=== PATIENT | female | born 1995 | race Caucasian/White ===

== ENCOUNTER 2018-12-31 16:04 | Outpatient (CLI) | payer MEDICAID, OTHER ==
[~2018-12-31] VITALS: Ht 152.4 cm; Wt 53.1 kg
--- NOTE | 2018-12-31 15:54 | NUR ---
LEIGHA PAREDES presented to unit via ambulation from home, accompanied by family, with c/o NAUSEA,VOMITING. LEIGHA PAREDES weighed, gowned, voided, and to bed. EFHM and TOCO applied, VS taken. LEIGHA PAREDES oriented to bed controls, call light, TV, heat, and A/C controls.
[~2018-12-31 16:04] MED LIST: ACHYD1T PO; AMOX250S5 PO; AMOX500C2; AMOX500C2 PO; BREA1EAC5 MC; CEPH500C PO; DCS100C PO; FLT05NA16 NSEACH; HYDR-3720 PO; IBP800T PO; NAPR-243 PO
[2018-12-31 16:07] VITALS: BP 102/60
--- NOTE | 2018-12-31 16:15 | NUR ---
FHR 150's per doppler under umbilicus.
--- NOTE | 2018-12-31 16:20 | NUR ---
Dr. Walsh called and notified of pt arrival. familiar with pt and pt c/o n/v. notified of VS, FHR. Orders rec'd.
[2018-12-31] MEDS ORDERED: ONDANSETRON 4 MG/2 ML (SDV) Z0FRAN IVP ONE (16:30)
[2018-12-31] MEDS ORDERED: D5 LR IV SOLUTION 1,000 ML IV SCH (16:30)
[2018-12-31 17:03] LABS: BASOPHILS % (AUTO) 1 % (0-10); EOSINOPHILS # (AUTO) 0.2 10^3/uL (0.0-0.3); EOSINOPHILS % (AUTO) 2 % (0-10); HEMATOCRIT 38 % (35-52); HEMOGLOBIN 12.3 G/DL (11.5-16.0); LYMPHOCYTES # (AUTO) 1.5 X 10^3 (1.0-4.0); LYMPHOCYTES % (AUTO) 19 % (12-44); MEAN CORPUSCULAR HEMOGLOBIN 28 PG (25-34); MEAN CORPUSCULAR HGB CONC 33 G/DL (32-36); MEAN CORPUSCULAR VOLUME 86 FL (80-99); MEAN PLATELET VOLUME 10.4 FL (7.4-10.4); MONOCYTES # (AUTO) 0.7 X 10^3 (0.0-1.0); MONOCYTES % (AUTO) 8 % (0-12); NEUTROPHILS # (AUTO) 5.7 X 10^3 (1.8-7.8); NEUTROPHILS % (AUTO) 71 % (42-75); PLATELET COUNT 304 10^3/uL (130-400)
[2018-12-31 17:24] LABS: ALANINE AMINOTRANSFERASE 96 U/L (0-55); ALBUMIN 3.6 GM/DL (3.2-4.5); ALKALINE PHOSPHATASE 38 U/L (40-136); BILIRUBIN,TOTAL 0.2 MG/DL (0.1-1.0); BUN/CREATININE RATIO 13; CALCIUM 8.7 MG/DL (8.5-10.1); CARBON DIOXIDE 22 MMOL/L (21-32); CHLORIDE 107 MMOL/L (98-107); CREATININE SERUM 0.55 MG/DL (0.60-1.30); GFR ESTIMATED > 60; GLUCOSE 71 MG/DL (70-105); POTASSIUM 3.4 MMOL/L (3.6-5.0); SODIUM 136 MMOL/L (135-145); TOTAL PROTEIN 6.3 GM/DL (6.4-8.2)
--- NOTE | 2018-12-31 17:45 | NUR ---
Dr Walsh here to see pt. Addendum: 12/31/18 at 1816 by LEONEL CAMARA RN Labs reported to at this time.
--- NOTE | 2018-12-31 18:55 | NUR ---
IV fluids done, pt reports feeling much better, desires to go home. IV D/C'd.
--- NOTE | 2018-12-31 19:05 | NUR ---
Discharge instructions explained to pt with copy provided to pt. Pt verbalizes understanding of teaching, denies questions or concerns at this time. Ambulates self off unit accompanied by family to private vehicle with all personal belongings. No s/s of distress noted.
== END 2018-12-31 19:05 | disposition home or self-care (01) ==
LOC: WSo 16:04 → LDRP 16:09 → WS 17:44 → WSo 19:05
PROVIDERS: ATTEND Obstetrics & Gynecology
DX: O21.9 Vomiting of pregnancy, unspecified (principal); Z3A.14 14 weeks gestation of pregnancy
CPT/HCPCS: 36415; 80053; 85025; 96361; 96374; 99213

== ENCOUNTER 2019-01-12 10:03 | Outpatient (CLI) | payer MEDICAID ==
[~2019-01-12] VITALS: Ht 152.4 cm; Wt 52.6 kg
[2019-01-12 09:50] VITALS: BP 97/60
--- NOTE | 2019-01-12 09:50 | NUR ---
LEIGHA PAREDES presented to unit via ambulation from home, accompanied by and daughter , with c/o NAUSEA,PAIN. LEIGHA PAREDES weighed, gowned, and to bed. VS taken. LEIGHA APREDES oriented to bed controls, call light, TV, heat, and A/C controls. Patient reports hx of nausea and vomiting x 2 weeks. States is able to keep down gatorade. Still needs to urinate through out day. Average emesis 4x day, mostly dry heaves. Points to epigastric area and upper sides as to where pain is.
[2019-01-12] MEDS ORDERED: ONDANSETRON 4 MG/2 ML (SDV) Z0FRAN IVP ONE (10:15)
[2019-01-12] MEDS ORDERED: BUTORPHANOL INJ 2 MG/ML (STADOL) VIAL IV PRN (10:15)
--- NOTE | 2019-01-12 10:15 | NUR ---
IV D5LR started in left hand with #22 jelco after 2 attempts. To run 500cc/hr per IV pump. Nausea meds given per order. Patient denies need for pain meds at this time.
[2019-01-12 10:37] LABS: BASOPHILS % (AUTO) 0 % (0-10); EOSINOPHILS # (AUTO) 0.3 10^3/uL (0.0-0.3); EOSINOPHILS % (AUTO) 5 % (0-10); HEMATOCRIT 33 % (35-52); LYMPHOCYTES # (AUTO) 1.7 X 10^3 (1.0-4.0); LYMPHOCYTES % (AUTO) 26 % (12-44); MEAN CORPUSCULAR HEMOGLOBIN 29 PG (25-34); MEAN CORPUSCULAR HGB CONC 33 G/DL (32-36); MEAN CORPUSCULAR VOLUME 87 FL (80-99); MEAN PLATELET VOLUME 9.4 FL (7.4-10.4); MONOCYTES # (AUTO) 0.6 X 10^3 (0.0-1.0); MONOCYTES % (AUTO) 9 % (0-12); NEUTROPHILS # (AUTO) 3.8 X 10^3 (1.8-7.8); NEUTROPHILS % (AUTO) 60 % (42-75); PLATELET COUNT 288 10^3/uL (130-400); RED CELL DISTRIBUTION WIDTH 14.4 % (10.0-14.5); WHITE BLOOD COUNT 6.4 10^3/uL (4.3-11.0)
[2019-01-12] MEDS: D5 LR IV SOLUTION 1,000 ML IV SCH ×2 (10:52→12:53)
[2019-01-12 10:59] LABS: ALANINE AMINOTRANSFERASE 76 U/L (0-55); ALBUMIN 3.4 GM/DL (3.2-4.5); ALKALINE PHOSPHATASE 38 U/L (40-136); BILIRUBIN,TOTAL 0.4 MG/DL (0.1-1.0); BUN/CREATININE RATIO 13; CALCIUM 8.7 MG/DL (8.5-10.1); CARBON DIOXIDE 22 MMOL/L (21-32); CHLORIDE 108 MMOL/L (98-107); CREATININE SERUM 0.56 MG/DL (0.60-1.30); GFR ESTIMATED > 60; GLUCOSE 76 MG/DL (70-105); POTASSIUM 3.5 MMOL/L (3.6-5.0); SODIUM 136 MMOL/L (135-145); TOTAL PROTEIN 5.8 GM/DL (6.4-8.2)
--- NOTE | 2019-01-12 11:00 | NUR ---
Ultrasound here. Exams done in room.
[2019-01-12 11:09] LABS: BILIRUBIN,URINE NEGATIVE (NEGATIVE); CLARITY,URINE CLEAR; COLOR,URINE YELLOW; GLUCOSE, URINE (UA) NEGATIVE (NEGATIVE); KETONES,URINE NEGATIVE (NEGATIVE); LEUKOCYTE ESTERASE ,URINE NEGATIVE (NEGATIVE); NITRITE,URINE NEGATIVE (NEGATIVE); PH,URINE 7 (5-9); PROTEIN,URINE NEGATIVE (NEGATIVE); UROBILINOGEN,URINE NORMAL (NORMAL)
[2019-01-12 11:17] LABS: BACTERIA,URINE TRACE /HPF; RBC,URINE RARE /HPF; WBC,URINE RARE /HPF
--- NOTE | 2019-01-12 12:26 | Diagnostic Imaging Report ---
INDICATION: Abdominal pain during TECHNIQUE: Multiple real time ahuja scale sonographic images were obtained of the right lower quadrant abdomen. CORRELATION STUDY: None FINDINGS: A normal and/or abnormal appendix is not visualized. No definitive encapsulated fluid collection. Large amount of shadowing from the bowel gas. IMPRESSION: 1.Nonvisualization of either a normal and/or abnormal appendix. Dictated by: Dictated on workstation # [id number]
--- NOTE | 2019-01-12 12:28 | Diagnostic Imaging Report ---
Indication: Abdominal pain. Technique: Multiple real-time grayscale images were obtained of the gravid uterus and in various projections. Findings: There is a single living intrauterine in breech presentation. Placenta is anterior. No previa. The biometry correlates with gestational age of 15 weeks 6 days. Heart rate is 133 beats per minute and regular. Cervical length 3.9 cm. Neither ovary was visualized. There are no adnexal masses. Impression: Single living interuterine in breech presentation with sonographically estimated gestational age of 15 weeks 6 days estimated date of confinement June 30, 2019. Dictated by: Dictated on workstation # [id number]
--- NOTE | 2019-01-12 12:29 | Diagnostic Imaging Report ---
PROCEDURE: US abdomen complete. TECHNIQUE: Multiple real-time grayscale images were obtained over the abdomen in various projections. INDICATION: Pain. FINDINGS: Liver is normal in size without focal lesions. No biliary ductal dilatation. Common bile duct measures less than 5 mm. There appears to be a small gallbladder polyp. There is no cholelithiasis, gallbladder wall thickening or pericholecystic fluid. Pancreas not well-seen due to bowel gas. Spleen is normal in size. Aorta is obscured by bowel gas. IVC is patent. Both kidneys are normal in appearance. There is no ascites. IMPRESSION: Unremarkable abdominal ultrasound. Dictated by: Dictated on workstation # [id number]
[2019-01-12 12:45] VITALS: BP 83/44
--- NOTE | 2019-01-12 12:45 | NUR ---
Resting in bed. No concerns voiced by patient. VS checked. Patient states she just got up to bathroom and voided large amount.
--- NOTE | 2019-01-12 13:20 | NUR ---
Dr. Walsh called unit to ask about patient. Reports given. No new orders.
--- NOTE | 2019-01-12 15:00 | NUR ---
IV fluids infused. Patient voiced desire for discharge when options reviewed.
--- NOTE | 2019-01-12 15:10 | NUR ---
IV dc'd. Site without signs of redness or swelling. Discharge instructions reviewed with patient. States understanding.
--- NOTE | 2019-01-12 15:20 | NUR ---
Dismissed ambulatory with family off WS unit to home. Will get in touch with physician on own if needed.
--- NOTE | 2019-01-13 20:04 | Physician Query-Final Dx ---
LYNETTE GOULD 01/13/19 2004: Clinic Account Progress/Dx Physician Query: Please give diagnosis Date of Service Jan 12, 2019 at 10:03 SHELLEY GAONA MD 01/14/19 0809: Clinic Account Progress/Dx DIAGNOSIS: Diagnosis hyperemesis gravidarum at 16 weeks gestation LYNETTE GOULD Jan 13, 2019 20:04 SHELLEY GAONA MD Jan 14, 2019 08:09
== END 2019-01-12 15:20 | disposition home or self-care (01) ==
LOC: LDRP 10:03 → WSo 10:03
PROVIDERS: ATTEND Obstetrics & Gynecology
DX: O21.0 Mild hyperemesis gravidarum (principal); Z3A.16 16 weeks gestation of pregnancy
CPT/HCPCS: 36415; 76700; 76705; 76815; 80053; 81000; 85025; 96361; 96374; 99213

== ENCOUNTER 2019-01-26 00:26 | Outpatient (CLI) | payer MEDICAID ==
[~2019-01-26] VITALS: Ht 152.4 cm; Wt 54.0 kg
--- NOTE | 2019-01-26 00:30 | NUR ---
LEIGHA PAREDES presented to unit via wheelchair from ED, accompanied by s.o., with c/o ABD/BACK PAIN 18 1/2 WKS PREG. LEIGHA PAREDES weighed, gowned, voided, and to bed. EFHM and TOCO applied, VS taken. LEIGHA PAREDES oriented to bed controls, call light, TV, heat, and A/C controls.
[2019-01-26] MEDS ORDERED: D5 LR IV SOLUTION 1,000 ML IV ONE (00:52)
[2019-01-26] MEDS ORDERED: ACETAMINOPHEN 500 MG TAB (TYLENOL) PO ONE (01:00)
[2019-01-26] MEDS ORDERED: D5 LR IV SOLUTION 1,000 ML IV SCH (01:00)
[2019-01-26 01:22] LABS: BASOPHILS % (AUTO) 1 % (0-10); EOSINOPHILS % (AUTO) 1 % (0-10); HEMATOCRIT 36 % (35-52); LYMPHOCYTES # (AUTO) 0.8 X 10^3 (1.0-4.0); LYMPHOCYTES % (AUTO) 12 % (12-44); MEAN CORPUSCULAR HEMOGLOBIN 29 PG (25-34); MEAN CORPUSCULAR HGB CONC 33 G/DL (32-36); MEAN CORPUSCULAR VOLUME 87 FL (80-99); MEAN PLATELET VOLUME 10.3 FL (7.4-10.4); MONOCYTES # (AUTO) 0.8 X 10^3 (0.0-1.0); MONOCYTES % (AUTO) 12 % (0-12); NEUTROPHILS # (AUTO) 4.9 X 10^3 (1.8-7.8); NEUTROPHILS % (AUTO) 75 % (42-75); PLATELET COUNT 273 10^3/uL (130-400); RED CELL DISTRIBUTION WIDTH 14.5 % (10.0-14.5); WHITE BLOOD COUNT 6.6 10^3/uL (4.3-11.0)
[2019-01-26 01:30] VITALS: BP 98/58
[2019-01-26 01:31] LABS: BILIRUBIN,URINE NEGATIVE (NEGATIVE); CLARITY,URINE CLEAR; COLOR,URINE YELLOW; GLUCOSE, URINE (UA) 2+ (NEGATIVE); KETONES,URINE 3+ (NEGATIVE); LEUKOCYTE ESTERASE ,URINE NEGATIVE (NEGATIVE); NITRITE,URINE NEGATIVE (NEGATIVE); PH,URINE 8 (5-9); PROTEIN,URINE 2+ (NEGATIVE); UROBILINOGEN,URINE 1 MG/DL (NORMAL)
[2019-01-26 01:40] LABS: BACTERIA,URINE NEGATIVE /HPF; RBC,URINE 0-2 /HPF
[2019-01-26 01:46] LABS: BAND NEUTROPHILS 6 %; LYMPHOCYTES % (MANUAL) 8 %; MONOCYTES % (MANUAL) 8 %; NEUTROPHILS % (MANUAL) 78 %; RBC MORPH NORMAL
[2019-01-26] MEDS ORDERED: AZIT250T12 PO (01:54)
[2019-01-26 02:01] VITALS: BP 98/58
[2019-01-26 02:08] VITALS: BP 102/59
--- NOTE | 2019-01-26 02:10 | NUR ---
Discharge packet given and explained, understanding voiced.
--- NOTE | 2019-01-26 02:12 | NUR ---
Pt ambulatory off unit at this time accompanied by s/o
== END 2019-01-26 02:12 | disposition home or self-care (01) ==
LOC: WSo 00:26 → LDRP 00:26 → WSo 02:12
PROVIDERS: ATTEND Obstetrics & Gynecology
DX: O62.9 Abnormality of forces of labor, unspecified (principal); Z3A.17 17 weeks gestation of pregnancy
CPT/HCPCS: 36415; 81000; 85007; 85027; 96360; 99213

== ENCOUNTER 2019-03-23 18:40 | Outpatient (CLI) | payer MEDICAID ==
[~2019-03-23] VITALS: Ht 152.4 cm; Wt 55.8 kg
[~2019-03-23 18:40] MED LIST changes: +AZIT250T12 PO
--- NOTE | 2019-03-23 18:40 | NUR ---
LEIGHA PAREDES presented to unit via w/c from home, accompanied by family, with c/o ITCHING,CRAMPING,SOB,STOMACH PAIN. LEIGHA PAREDES weighed, gowned, voided, and to bed. EFHM and TOCO applied, VS taken. LEIGHA PAREDES oriented to bed controls, call light, TV, heat, and A/C controls.
[2019-03-23 18:51] VITALS: BP 106/63
--- NOTE | 2019-03-23 19:02 | NUR ---
DR. GAONA NOTIFIED OF PT'S ARRIVAL, GESTATION, C/O, SVE. NEW ORDERS RECEIVED.
[2019-03-23 19:17] LABS: BASOPHILS % (AUTO) 0 % (0-10); EOSINOPHILS # (AUTO) 0.5 10^3/uL (0.0-0.3); EOSINOPHILS % (AUTO) 6 % (0-10); HEMATOCRIT 32 % (35-52); HEMOGLOBIN 10.5 G/DL (11.5-16.0); LYMPHOCYTES # (AUTO) 1.5 X 10^3 (1.0-4.0); LYMPHOCYTES % (AUTO) 20 % (12-44); MEAN CORPUSCULAR HEMOGLOBIN 29 PG (25-34); MEAN CORPUSCULAR HGB CONC 32 G/DL (32-36); MEAN CORPUSCULAR VOLUME 89 FL (80-99); MEAN PLATELET VOLUME 10.1 FL (7.4-10.4); MONOCYTES # (AUTO) 0.6 X 10^3 (0.0-1.0); MONOCYTES % (AUTO) 8 % (0-12); NEUTROPHILS % (AUTO) 66 % (42-75); PLATELET COUNT 304 10^3/uL (130-400); WHITE BLOOD COUNT 7.5 10^3/uL (4.3-11.0)
[2019-03-23] MEDS ORDERED: PREN-142 PO (20:05)
[2019-03-23] MEDS ORDERED: OXYC-471 PO (20:05)
--- NOTE | 2019-03-23 20:15 | NUR ---
D/C instructions given & explained, pt. verbalized understanding & signed, copy of D/C instructions to pt. Pt. taken off monitor, left WS ambulatory to home via private vehicle escorted by SO & children.
--- NOTE | 2019-03-25 17:12 | Physician Query-Final Dx ---
LYNETTE GOULD 03/25/19 1712: Final Diagnosis Give Final Diagnosis Please give Final Diagnosis SHELLEY GAONA MD 03/26/19 0725: Final Diagnosis Give Final Diagnosis FAlse labor LYNETTE GOULD March 25, 2019 17:12 SHELLEY GAONA MD March 26, 2019 07:25
== END 2019-03-23 20:15 | disposition home or self-care (01) ==
LOC: LDRP 18:40 → WSo 18:40
PROVIDERS: ATTEND Obstetrics & Gynecology
DX: O47.9 False labor, unspecified (principal)
CPT/HCPCS: 36415; 85025; 99213

== ENCOUNTER 2019-05-05 16:20 | Outpatient (CLI) | payer MEDICAID, OTHER ==
[~2019-05-05] VITALS: Ht 152.4 cm; Wt 60.3 kg
[~2019-05-05 16:20] MED LIST changes: +OXYC-471 PO; +PREN-142 PO
--- NOTE | 2019-05-05 16:30 | NUR ---
LEIGHA PAREDES presented to unit via ambulation, accompanied by fmaily members, with c/o abd cramping since yesterday. Pt. weighed, gowned, voided, and to bed. EFHM and TOCO applied, VS taken. Pt. oriented to bed controls, call light, TV, heat, and A/C controls.
[2019-05-05 16:34] VITALS: BP 100/67
[2019-05-05 16:59] LABS: BILIRUBIN,URINE NEGATIVE (NEGATIVE); CLARITY,URINE CLEAR; COLOR,URINE YELLOW; GLUCOSE, URINE (UA) NEGATIVE (NEGATIVE); KETONES,URINE NEGATIVE (NEGATIVE); LEUKOCYTE ESTERASE ,URINE NEGATIVE (NEGATIVE); NITRITE,URINE NEGATIVE (NEGATIVE); PH,URINE 7 (5-9); PROTEIN,URINE NEGATIVE (NEGATIVE); UROBILINOGEN,URINE NORMAL (NORMAL)
--- NOTE | 2019-05-05 17:02 | NUR ---
SVe closed, thick, posterior. reports c/o constant lower abd cramping since yesterday. took warm bath with no relief. report frequency with urination. denies vaginal bleeding or leaking fluid. +FM.
--- NOTE | 2019-05-05 17:07 | NUR ---
was called. no answer on cell phone.
[2019-05-05 17:12] LABS: BACTERIA,URINE MODERATE /HPF
--- NOTE | 2019-05-05 17:23 | NUR ---
returned phone call. status update given on pt's admit c/o's. Macrobid Rx order given.
[2019-05-05] MEDS ORDERED: NITR-65 PO (17:26)
--- NOTE | 2019-05-05 17:27 | NUR ---
monitors dc'd. POC reviewed, states understanding. monitor tracing reviewed. no ctx's noted. FHR 135. moderate variability present. accels noted.
--- NOTE | 2019-05-05 17:30 | NUR ---
Macrobid 100mg p.o. BID x7 days-- called into [facility] per pt's request.
--- NOTE | 2019-05-05 17:36 | NUR ---
dismissal instructions given. verbalizes understanding. reviewed Macrobid administration schedule. instructed pt to increase daily water intake and finish Rx. signature page signed, placed on chart. pt ambulated to private vehicle with family members @ side.
--- NOTE | 2019-05-09 17:06 | Physician Query-Final Dx ---
Final Diagnosis Give Final Diagnosis Please give Final Diagnosis Dr Walsh, Please give a final diagnosis and please include the weeks of gestation thank you SAVI ELIZABETH May 09, 2019 17:06
== END 2019-05-05 17:36 | disposition home or self-care (01) ==
LOC: WSo 16:20 → LDRP 16:20 → WSo 17:36
PROVIDERS: ATTEND Obstetrics & Gynecology
DX: O47.03 False labor before 37 completed weeks of gestation, third trimester (principal); Z3A.32 32 weeks gestation of pregnancy
CPT/HCPCS: 81000; 87088; 99213

== ENCOUNTER 2019-05-24 12:36 | Outpatient (CLI) | payer MEDICAID ==
[~2019-05-24] VITALS: Ht 152.4 cm; Wt 60.3 kg
[~2019-05-24 12:36] MED LIST changes: +NITR-65 PO
--- NOTE | 2019-05-24 12:36 | NUR ---
LEIGHA PAREDES presented to unit via ambulatory from home, accompanied by spouse , with c/o CRAMPING. LEIGHA PAREDES weighed, gowned, voided, and to bed. EFHM and TOCO applied, VS taken. LEIGHA PAREDES oriented to bed controls, call light, TV, heat, and A/C controls.
[2019-05-24 12:39] VITALS: BP 96/68
--- NOTE | 2019-05-24 13:05 | NUR ---
Dr Walsh notifed per text of pt admission and complaints of cramping and brown colored discharge x 1. 1324 Physician returned call with orders. 1335 Wet prep done and sent to lab. Pt denies contractions.
--- NOTE | 2019-05-24 13:40 | NUR ---
FHT 130's with accelerations. Occasional contraction. 1500 FHT 130's with accelerations. Occasional contraction. 1550 Discharge to home. Verbalizes understanding of instructions and to obtain Flagyl from pharmacy.
[2019-05-24] MEDS ORDERED: DICY10CA12 PO (14:00)
--- NOTE | 2019-05-24 14:36 | NUR ---
Dr Walsh notified per text of wet prep results.
[2019-05-24] MEDS ORDERED: METR500T PO (15:28)
--- NOTE | 2019-06-04 15:19 | Physician Query-Final Dx ---
LYNETTE GOULD 06/04/19 1519: Clinic Account Progress/Dx Physician Query: Please give diagnosis Need dx and weeks of gestation Date of Service May 24, 2019 at 12:36 SHELLEY GAONA MD 06/05/19 0918: Clinic Account Progress/Dx DIAGNOSIS: Diagnosis False labor at 34 weeks and 5 days and about 17 hours LYNETTE GOULD Jun 04, 2019 15:19 SHELLEY GAONA MD Jun 05, 2019 09:18
== END 2019-05-24 15:50 | disposition home or self-care (01) ==
LOC: LDRP 12:36 → WSo 12:36
PROVIDERS: ATTEND Obstetrics & Gynecology
DX: O47.03 False labor before 37 completed weeks of gestation, third trimester (principal); Z3A.34 34 weeks gestation of pregnancy
CPT/HCPCS: 87210; 99214

== ENCOUNTER 2019-06-05 20:45 | Outpatient (CLI) | payer MEDICAID ==
[~2019-06-05] VITALS: Ht 152.4 cm; Wt 61.2 kg
[~2019-06-05 20:45] MED LIST changes: +DICY10CA12 PO; +METR500T PO
[2019-06-05 21:00] VITALS: BP 110/76
--- NOTE | 2019-06-05 21:00 | NUR ---
LEIGHA PAREDES presented to unit via AMBULATORY from ED, accompanied by S/O, with c/o CONTRACTIONS; LEAKING FLUID. LEIGHA PAREDES weighed, gowned, voided, and to bed. EFHM and TOCO applied, VS taken. LEIGHA PAREDES oriented to bed controls, call light, TV, heat, and A/C controls.
--- NOTE | 2019-06-05 21:13 | NUR ---
called with pt's arrival and exam. new orders received.
--- NOTE | 2019-06-05 21:40 | NUR ---
Reactive nst, no contractions noted. pt denies any pain. discharge instructions given with labor precautions. pt dc'd home with s/o at side.
--- NOTE | 2019-06-10 18:31 | Physician Query-Final Dx ---
LYNETTE GOULD 06/10/19 1831: Clinic Account Progress/Dx Physician Query: Please give diagnosis Need dx and weeks of gestation Date of Service Jun 05, 2019 at 20:45 SHELLEY GAONA MD 06/10/19 1901: Clinic Account Progress/Dx DIAGNOSIS: Diagnosis False labor at 36 weeks gestation LYNETTE GOULD Jun 10, 2019 18:31 SHELLEY GAONA MD Jun 10, 2019 19:01
== END 2019-06-05 21:40 | disposition home or self-care (01) ==
LOC: WSo 20:45 → LDRP 20:47 → WSo 21:40
PROVIDERS: ATTEND Obstetrics & Gynecology
DX: O47.03 False labor before 37 completed weeks of gestation, third trimester (principal); Z3A.36 36 weeks gestation of pregnancy
CPT/HCPCS: 99213

== ENCOUNTER 2019-06-16 10:52 | Inpatient (IN) | payer MEDICAID ==
[2019-06-16] VITALS (55 sets, daily range): BP systolic 85–122; BP diastolic 51–79
[~2019-06-16] VITALS: Ht 152.4 cm; Wt 63.2 kg
--- NOTE | 2019-06-16 10:56 | NUR ---
LEIGHA PAREDES presented to unit via ambulation from 's office, accompanied by family, for direct admit r/t labor. Pt. weighed, gowned, voided, and to bed. EFHM and TOCO applied, VS taken. Pt. oriented to bed controls, call light, TV, heat, and A/C controls.
--- OUTSIDE RECORDS SUMMARY | 2019-06-16 11:00 | XMS REPORT | Continuity of Care Document ---
Author Organization Unknown Address Unknown Phone Unavailable Allergies Active Description Code Type Severity Reaction Onset Reported/Identified Relationship to Patient Clinical Status Yes NKANo Known Allergies NKA Miscellaneous Allergy Mild N/A 03/17/2009 Medications There is no data. Problems Date Dx Coded Attending Type Code Diagnosis Diagnosed By 07/19/2008 V03.89 MENINGOCOCCAL, OTHER SPECIFIED SINGLE BACTERIAL DISEASE 07/19/2008 V05.3 HEPATITIS VIRAL/ALL 07/19/2008 V05.8 GARDASIL, SHINGLES, OTHER SPECIFIED DISEASE 07/19/2008 V20.2 WELL CHILD, ROUTINE 07/19/2008 NOMAN GUPTA DO V03.89 MENINGOCOCCAL, OTHER SPECIFIED SINGLE BACTERIAL DISEASE 07/19/2008 NOMAN GUPTA DO V05.3 HEPATITIS VIRAL/ALL 07/19/2008 NOMAN GUPTA DO V05.8 GARDASIL, SHINGLES, OTHER SPECIFIED DISEASE 07/19/2008 NOMAN GUPTA DO V20.2 WELL CHILD, ROUTINE 08/08/2010 Ot 620.2 08/08/2010 Ot 625.9 03/27/2011 Ot 041.4 E. COLI INFECT NOS 03/27/2011 Ot 276.51 DEHYDRATION 03/27/2011 Ot 599.0 URIN TRACT INFECTION NOS 11/27/2011 Ot 632 MISSED 11/12/2012 Ot 462 ACUTE PHARYNGITIS 11/12/2012 Ot 465.9 ACUTE URI NOS 01/26/2013 Ot 599.0 URIN TRACT INFECTION NOS 01/26/2013 Ot 780.60 FEVER, UNSPECIFIED 08/16/2013 CURTIS DUGGAN MD Ot 789.00 ABDOMINAL PAIN, UNSPECIFIED SITE 08/20/2013 NOMAN GUPTA DO 626.0 AMENORRHEA 02/28/2014 CURTIS DUGGAN MD Ot 462 ACUTE PHARYNGITIS 02/28/2014 CURTIS DUGGAN MD Ot 648.93 OT CURR COND-ANTEPARTUM 03/10/2014 CANDELARIA GARCIA, SHELLEY Liang Ot 644.21 EARLY ONSET DELIVERY-DEL 03/10/2014 CANDELARIA GARCIA, SHELLEY Liang Ot 663.31 CORD ENTANGLE NEC-DELIV 03/10/2014 CANDELARIA GARCIA, SHELLEY Liang Ot V06.1 [id number], COMBINED [ 03/10/2014 SHELLEY GAONA MD Ot V06.4 [id number] 03/10/2014 SHELLEY GAONA MD Ot V27.0 DELIVER-SINGLE LIVEBORN 03/26/2015 CURTIS DUGGAN MD Ot 346.90 MIGRAINE UNSPECIFIED W/O INTRACT MGRN W/ 03/26/2015 CURTIS DUGGAN MD Ot 784.0 HEADACHE 09/18/2015 Ot 276.8 09/18/2015 Ot 285.9 09/18/2015 Ot 632 09/18/2015 Ot V72.63 09/18/2015 Ot V74.8 09/18/2015 SHELLEY GAONA MD Ot 575.6 09/18/2015 SHELLEY GAONA MD Ot 789.00 10/04/2015 SALINA GARCIA FACC, ALI FACP CCDS Ot R00.2 10/04/2015 SALINA GARCIA FACC, ALI FACP CCDS Ot R06.02 10/16/2015 SALINA GARCIA FACC, ALI FACP CCDS Ot R00.2 10/16/2015 SALINA GARCIA FACC, ALI FACP CCDS Ot R06.02 04/18/2016 Ot 276.8 HYPOPOTASSEMIA 04/18/2016 Ot 285.9 ANEMIA NOS 04/18/2016 Ot 632 MISSED 04/18/2016 Ot V72.63 PRE-PROCEDURAL LABORATORY EXAMINATION 04/18/2016 Ot V74.8 SCREEN-BACTERIAL DIS NEC 12/31/2018 SHELLEY GAONA MD Ot 575.6 GB CHOLESTEROLOSIS 12/31/2018 CANDELARIA GARCIA, SHELLEY Liang Ot 789.00 ABDOMINAL PAIN, UNSPECIFIED SITE 12/31/2018 SALINA GARCIA FACC, ALI FACP CCDS Ot R00.2 PALPITATIONS 12/31/2018 SALINA GARCIA FACC, ALI FACP CCDS Ot R06.02 SHORTNESS OF BREATH 12/31/2018 SHELLEY GAONA MD, Ot O21.9 VOMITING OF , UNSPECIFIED 12/31/2018 SHELLEY GAONA MD, Ot Z3A.14 14 WEEKS GESTATION OF 01/01/2019 SHELLEY GAONA MD, Ot O21.9 VOMITING OF , UNSPECIFIED 01/01/2019 SHELLEY GAONA MD, Ot Z3A.14 14 WEEKS GESTATION OF 01/12/2019 SHELLEY GAONA MD, Ot O21.0 MILD HYPEREMESIS GRAVIDARUM 01/12/2019 SHELLEY GAONA MD, Ot Z3A.16 16 WEEKS GESTATION OF 01/26/2019 SHELLEY GAONA MD, Ot O62.9 ABNORMALITY OF FORCES OF LABOR, UNSPECIF 01/26/2019 SHELLEY GAONA MD, Ot Z3A.17 17 WEEKS GESTATION OF 03/23/2019 SHELLEY GAONA MD, Ot O47.9 FALSE LABOR, UNSPECIFIED 03/26/2019 SHELLEY GAONA MD, Ot O47.9 FALSE LABOR, UNSPECIFIED 05/05/2019 SHELLEY GAONA MD, Ot O47.03 FALSE LABOR BEFORE 37 COMPLETED WEEKS OF 05/05/2019 SHELLEY GAONA MD, Ot Z3A.32 32 WEEKS GESTATION OF 05/18/2019 SHELLEY GAONA MD, Ot O47.03 FALSE LABOR BEFORE 37 COMPLETED WEEKS OF 05/18/2019 SHELLEY GAONA MD, Ot Z3A.32 32 WEEKS GESTATION OF 06/05/2019 SHELLEY GAONA MD, Ot O47.03 FALSE LABOR BEFORE 37 COMPLETED WEEKS OF 06/05/2019 SHELLEY GAONA MD, Ot Z3A.36 36 WEEKS GESTATION OF 06/08/2019 SHELLEY GAONA MD, Ot O47.03 FALSE LABOR BEFORE 37 COMPLETED WEEKS OF 06/08/2019 SHELLEY GAONA MD, Ot Z3A.34 34 WEEKS GESTATION OF 06/11/2019 SHELLEY GAONA MD, Ot O47.03 FALSE LABOR BEFORE 37 COMPLETED WEEKS OF 06/11/2019 SHELLEY GAONA MD G Ot Z3A.36 36 WEEKS GESTATION OF Procedures Code [place] [address] ROUTINE VENIPUNCTURE 08/23/2013 90824 HCG QUANTITATIVE 08/23/2013 73.6 EPISIOTOMY 03/08/2014 Results Test Result Range Complete blood count (CBC) with automated white blood cell (WBC) differential - 12/31/18 16:50 Blood leukocytes automated count (number/volume) 8.0 10*3/uL 4.3-11.0 Blood erythrocytes automated count (number/volume) 4.34 10*6/uL 4.35-5.85 Venous blood hemoglobin measurement (mass/volume) 12.3 g/dL 11.5-16.0 Blood hematocrit (volume fraction) 38 % 35-52 Automated erythrocyte mean corpuscular volume 86 [foz_us] 80-99 Automated erythrocyte mean corpuscular hemoglobin (mass per erythrocyte) 28 pg 25-34 Automated erythrocyte mean corpuscular hemoglobin concentration measurement (mass/volume) 33 g/dL 32-36 Automated erythrocyte distribution width ratio 14.0 % 10.0- 14.5 Automated blood platelet count (count/volume) 304 10*3/uL 130-400 Automated blood platelet mean volume measurement 10.4 [foz_us] 7.4-10.4 Automated blood neutrophils/100 leukocytes 71 % 42-75 Automated blood lymphocytes/100 leukocytes 19 % 12-44 Blood monocytes/100 leukocytes 8 % 0-12 Automated blood eosinophils/100 leukocytes 2 % 0-10 Automated blood basophils/100 leukocytes 1 % 0-10 Blood neutrophils automated count (number/volume) 5.7 10*3 1.8-7.8 Blood lymphocytes automated count (number/volume) 1.5 10*3 1.0-4.0 Blood monocytes automated count (number/volume) 0.7 10*3 0.0- 1.0 Automated eosinophil count 0.2 10*3/uL 0.0-0.3 Automated blood basophil count (count/volume) 0.0 10*3/uL 0.0-0.1 Comprehensive metabolic panel - 12/31/18 16:50 Serum or plasma sodium measurement (moles/volume) 136 mmol/L 135-145 Serum or plasma potassium measurement (moles/volume) 3.4 mmol/L 3.6-5.0 Serum or plasma chloride measurement (moles/volume) 107 mmol/L 98-107 Carbon dioxide 22 mmol/L 21-32 Serum or plasma anion gap determination (moles/volume) 7 mmol/L 5-14 Serum or plasma urea nitrogen measurement (mass/volume) 7 mg/dL 7-18 Serum or plasma creatinine measurement (mass/volume) 0.55 mg/dL 0.60-1.30 Serum or plasma urea nitrogen/creatinine mass ratio 13 NRG Serum or plasma creatinine measurement with calculation of estimated glomerular filtration rate > NRG Serum or plasma glucose measurement (mass/volume) 71 mg/dL 70-105 Serum or plasma calcium measurement (mass/volume) 8.7 mg/dL 8.5-10.1 Serum or plasma total bilirubin measurement (mass/volume) 0.2 mg/dL 0.1-1.0 Serum or plasma alkaline phosphatase measurement (enzymatic activity/volume) 38 U/L 40-136 Serum or plasma aspartate aminotransferase measurement (enzymatic activity/volume) 55 U/L 5-34 Serum or plasma alanine aminotransferase measurement (enzymatic activity/volume) 96 U/L 0-55 Serum or plasma protein measurement (mass/volume) 6.3 g/dL 6.4-8.2 Serum or plasma albumin measurement (mass/volume) 3.6 g/dL 3.2-4.5 CALCIUM CORRECTED 9.0 mg/dL 8.5-10.1 Complete urinalysis with reflex to culture - 01/12/19 10:20 Urine color determination YELLOW NRG Urine clarity determination CLEAR NRG Urine pH measurement by test strip 7 5-9 Specific gravity of urine by test strip 1.010 1.016-1.022 Urine protein assay by test strip, semi-quantitative NEGATIVE NEGATIVE Urine glucose detection by automated test strip NEGATIVE NEGATIVE Erythrocytes detection in urine sediment by light microscopy NEGATIVE NEGATIVE Urine ketones detection by automated test strip NEGATIVE NEGATIVE Urine nitrite detection by test strip NEGATIVE NEGATIVE Urine total bilirubin detection by test strip NEGATIVE NEGATIVE Urine urobilinogen measurement by automated test strip (mass/volume) NORMAL NORMAL Urine leukocyte esterase detection by dipstick NEGATIVE NEGATIVE Automated urine sediment erythrocyte count by microscopy (number/high power field) RARE NRG Automated urine sediment leukocyte count by microscopy (number/high power field) RARE NRG Bacteria detection in urine sediment by light microscopy TRACE NRG Squamous epithelial cells detection in urine sediment by light microscopy 10-25 NRG Crystals detection in urine sediment by light microscopy NONE NRG Casts detection in urine sediment by light microscopy NONE NRG Mucus detection in urine sediment by light microscopy MODERATE NRG Complete urinalysis with reflex to culture NO NRG Complete blood count (CBC) with automated white blood cell (WBC) differential - 01/12/19 10:25 Blood leukocytes automated count (number/volume) 6.4 10*3/uL 4.3-11.0 Blood erythrocytes automated count (number/volume) 3.80 10*6/uL 4.35-5.85 Venous blood hemoglobin measurement (mass/volume) 11.0 g/dL 11.5-16.0 Blood hematocrit (volume fraction) 33 % 35-52 Automated erythrocyte mean corpuscular volume 87 [foz_us] 80-99 Automated erythrocyte mean corpuscular hemoglobin (mass per erythrocyte) 29 pg 25-34 Automated erythrocyte mean corpuscular hemoglobin concentration measurement (mass/volume) 33 g/dL 32-36 Automated erythrocyte distribution width ratio 14.4 % 10.0- 14.5 Automated blood platelet count (count/volume) 288 10*3/uL 130-400 Automated blood platelet mean volume measurement 9.4 [foz_us] 7.4-10.4 Automated blood neutrophils/100 leukocytes 60 % 42-75 Automated blood lymphocytes/100 leukocytes 26 % 12-44 Blood monocytes/100 leukocytes 9 % 0-12 Automated blood eosinophils/100 leukocytes 5 % 0-10 Automated blood basophils/100 leukocytes 0 % 0-10 Blood neutrophils automated count (number/volume) 3.8 10*3 1.8-7.8 Blood lymphocytes automated count (number/volume) 1.7 10*3 1.0-4.0 Blood monocytes automated count (number/volume) 0.6 10*3 0.0- 1.0 Automated eosinophil count 0.3 10*3/uL 0.0-0.3 Automated blood basophil count (count/volume) 0.0 10*3/uL 0.0-0.1 Comprehensive metabolic panel - 01/12/19 10:25 Serum or plasma sodium measurement (moles/volume) 136 mmol/L 135-145 Serum or plasma potassium measurement (moles/volume) 3.5 mmol/L 3.6-5.0 Serum or plasma chloride measurement (moles/volume) 108 mmol/L 98-107 Carbon dioxide 22 mmol/L 21-32 Serum or plasma anion gap determination (moles/volume) 6 mmol/L 5-14 Serum or plasma urea nitrogen measurement (mass/volume) 7 mg/dL 7-18 Serum or plasma creatinine measurement (mass/volume) 0.56 mg/dL 0.60-1.30 Serum or plasma urea nitrogen/creatinine mass ratio 13 NRG Serum or plasma creatinine measurement with calculation of estimated glomerular filtration rate > NRG Serum or plasma glucose measurement (mass/volume) 76 mg/dL 70-105 Serum or plasma calcium measurement (mass/volume) 8.7 mg/dL 8.5-10.1 Serum or plasma total bilirubin measurement (mass/volume) 0.4 mg/dL 0.1-1.0 Serum or plasma alkaline phosphatase measurement (enzymatic activity/volume) 38 U/L 40-136 Serum or plasma aspartate aminotransferase measurement (enzymatic activity/volume) 57 U/L 5-34 Serum or plasma alanine aminotransferase measurement (enzymatic activity/volume) 76 U/L 0-55 Serum or plasma protein measurement (mass/volume) 5.8 g/dL 6.4-8.2 Serum or plasma albumin measurement (mass/volume) 3.4 g/dL 3.2-4.5 CALCIUM CORRECTED 9.2 mg/dL 8.5-10.1 Blood CBC with ordered manual differential panel - 01/26/19 01:05 Blood leukocytes automated count (number/volume) 6.6 10*3/uL 4.3-11.0 Blood erythrocytes automated count (number/volume) 4.16 10*6/uL 4.35-5.85 Venous blood hemoglobin measurement (mass/volume) 12.0 g/dL 11.5-16.0 Blood hematocrit (volume fraction) 36 % 35-52 Automated erythrocyte mean corpuscular volume 87 [foz_us] 80-99 Automated erythrocyte mean corpuscular hemoglobin (mass per erythrocyte) 29 pg 25-34 Automated erythrocyte mean corpuscular hemoglobin concentration measurement (mass/volume) 33 g/dL 32-36 Automated erythrocyte distribution width ratio 14.5 % 10.0- 14.5 Automated blood platelet count (count/volume) 273 10*3/uL 130-400 Automated blood platelet mean volume measurement 10.3 [foz_us] 7.4-10.4 Automated blood neutrophils/100 leukocytes 75 % 42-75 Automated blood lymphocytes/100 leukocytes 12 % 12-44 Blood monocytes/100 leukocytes 8 % NRG Automated blood eosinophils/100 leukocytes 1 % 0-10 Automated blood basophils/100 leukocytes 1 % 0-10 Blood neutrophils automated count (number/volume) 4.9 10*3 1.8-7.8 Blood lymphocytes automated count (number/volume) 0.8 10*3 1.0-4.0 Blood monocytes automated count (number/volume) 0.8 10*3 0.0- 1.0 Automated eosinophil count 0.0 10*3/uL 0.0-0.3 Automated blood basophil count (count/volume) 0.0 10*3/uL 0.0-0.1 Manual blood segmented neutrophils/100 leukocytes 78 % NRG Blood band neutrophils/100 leukocytes 6 % NRG Manual blood lymphocytes/100 leukocytes 8 % NRG Blood erythrocyte morphology finding identification NORMAL NRG Complete urinalysis with reflex to culture - 01/26/19 01:20 Urine color determination YELLOW NRG Urine clarity determination CLEAR NRG Urine pH measurement by test strip 8 5-9 Specific gravity of urine by test strip 1.015 1.016-1.022 Urine protein assay by test strip, semi-quantitative 2+ NEGATIVE Urine glucose detection by automated test strip 2+ NEGATIVE Erythrocytes detection in urine sediment by light microscopy 2+ NEGATIVE Urine ketones detection by automated test strip 3+ NEGATIVE Urine nitrite detection by test strip NEGATIVE NEGATIVE Urine total bilirubin detection by test strip NEGATIVE NEGATIVE Urine urobilinogen measurement by automated test strip (mass/volume) 1 mg/dL NORMAL Urine leukocyte esterase detection by dipstick NEGATIVE NEGATIVE Automated urine sediment erythrocyte count by microscopy (number/high power field) [HPF] NRG Automated urine sediment leukocyte count by microscopy (number/high power field) NONE NRG Bacteria detection in urine sediment by light microscopy NEGATIVE NRG Squamous epithelial cells detection in urine sediment by light microscopy 2-5 NRG Crystals detection in urine sediment by light microscopy NONE NRG Casts detection in urine sediment by light microscopy NONE NRG Mucus detection in urine sediment by light microscopy LARGE NRG Complete urinalysis with reflex to culture NO NRG Complete blood count (CBC) with automated white blood cell (WBC) differential - 03/23/19 19:10 Blood leukocytes automated count (number/volume) 7.5 10*3/uL 4.3-11.0 Blood erythrocytes automated count (number/volume) 3.66 10*6/uL 4.35-5.85 Venous blood hemoglobin measurement (mass/volume) 10.5 g/dL 11.5-16.0 Blood hematocrit (volume fraction) 32 % 35-52 Automated erythrocyte mean corpuscular volume 89 [foz_us] 80-99 Automated erythrocyte mean corpuscular hemoglobin (mass per erythrocyte) 29 pg 25-34 Automated erythrocyte mean corpuscular hemoglobin concentration measurement (mass/volume) 32 g/dL 32-36 Automated erythrocyte distribution width ratio 14.0 % 10.0- 14.5 Automated blood platelet count (count/volume) 304 10*3/uL 130-400 Automated blood platelet mean volume measurement 10.1 [foz_us] 7.4-10.4 Automated blood neutrophils/100 leukocytes 66 % 42-75 Automated blood lymphocytes/100 leukocytes 20 % 12-44 Blood monocytes/100 leukocytes 8 % 0-12 Automated blood eosinophils/100 leukocytes 6 % 0-10 Automated blood basophils/100 leukocytes 0 % 0-10 Blood neutrophils automated count (number/volume) 5.0 10*3 1.8-7.8 Blood lymphocytes automated count (number/volume) 1.5 10*3 1.0-4.0 Blood monocytes automated count (number/volume) 0.6 10*3 0.0- 1.0 Automated eosinophil count 0.5 10*3/uL 0.0-0.3 Automated blood basophil count (count/volume) 0.0 10*3/uL 0.0-0.1 Complete urinalysis with reflex to culture - 05/05/19 16:45 Urine color determination YELLOW NRG Urine clarity determination CLEAR NRG Urine pH measurement by test strip 7 5-9 Specific gravity of urine by test strip 1.005 1.016-1.022 Urine protein assay by test strip, semi-quantitative NEGATIVE NEGATIVE Urine glucose detection by automated test strip NEGATIVE NEGATIVE Erythrocytes detection in urine sediment by light microscopy NEGATIVE NEGATIVE Urine ketones detection by automated test strip NEGATIVE NEGATIVE Urine nitrite detection by test strip NEGATIVE NEGATIVE Urine total bilirubin detection by test strip NEGATIVE NEGATIVE Urine urobilinogen measurement by automated test strip (mass/volume) NORMAL NORMAL Urine leukocyte esterase detection by dipstick NEGATIVE NEGATIVE Automated urine sediment erythrocyte count by microscopy (number/high power field) NONE NRG Automated urine sediment leukocyte count by microscopy (number/high power field) NONE NRG Bacteria detection in urine sediment by light microscopy MODERATE NRG Squamous epithelial cells detection in urine sediment by light microscopy 10-25 NRG Crystals detection in urine sediment by light microscopy NONE NRG Casts detection in urine sediment by light microscopy NONE NRG Mucus detection in urine sediment by light microscopy NEGATIVE NRG Complete urinalysis with reflex to culture CULTURE PENDING NRG Bacterial urine culture - 05/05/19 16:45 Bacterial urine culture NG NRG Microscopic examination by wet preparation - 05/24/19 13:35 WET PREP RESULTS MODERATE # WBC'S NRG Encounters ACCT No. Visit Date/Time Discharge Status Pt. Type Provider Facility Loc./Unit Complaint [id number] 08/23/2013 07:56:00 08/23/2013 23:59:59 CLS Outpatient CANDY NOMAN Marissa [id number] 07/19/2008 14:28:00 07/19/2008 23:59:59 CLS Outpatient [id number] 06/05/2019 20:45:00 06/05/2019 21:40:00 DIS Outpatient SHELLEY GAONA MD [facility] CONTRACTIONS; LEAKING FLUID [id number] 05/24/2019 12:36:00 05/24/2019 15:50:00 DIS Outpatient SHELLEY GAONA MD [facility] CRAMPING [id number] 05/05/2019 16:20:00 05/05/2019 17:36:00 DIS Outpatient SHELLEY GAONA MD [facility] CONTRACTIONS [id number] 03/23/2019 18:40:00 03/23/2019 20:15:00 DIS Outpatient SHELLEY GAONA MD [facility] ITCHING,CRAMPING,SOB,STOMACH PAIN [id number] 01/26/2019 00:26:00 01/26/2019 02:12:00 DIS Outpatient SHELLEY GAONA MD [facility] ABD/BACK PAIN 18 1/2 WKS PREG [id number] 01/12/2019 10:03:00 01/12/2019 15:20:00 DIS Outpatient SHELLEY GAONA MD [facility] NAUSEA,PAIN [id number] 12/31/2018 16:04:00 12/31/2018 19:05:00 DIS Outpatient SHELLEY GAONA MD [facility] WSo NAUSEA,VOMITING [id number] 09/18/2015 12:46:00 09/18/2015 23:59:59 CLS Outpatient SALINA GARCIA FACC, RICKY MCCLAIN CCDS [facility] CARD PALPITATIONS,SOB [id number] 03/26/2015 04:28:00 03/26/2015 05:46:00 DIS Emergency CURTIS DUGGAN MD [facility] ER HEADACHE,DIZZINESS,SOA [id number] 03/08/2014 06:20:00 03/10/2014 17:03:00 DIS Inpatient SHELLEY GAONA MD [facility] WS CONTRACTIONS,FLUID LEAKING/LABOR [id number] 02/28/2014 01:47:00 02/28/2014 02:35:00 DIS Emergency CURTIS DUGGAN MD [facility] ER SORE THROAT;EAR PAIN [id number] 01/17/2014 07:52:00 01/17/2014 23:59:59 CLS Outpatient SHELLEY GAONA MD [facility] RAD UPPER ABD PAIN [id number] 08/20/2013 14:21:00 08/20/2013 23:59:59 CLS Emergency [id number] 08/16/2013 13:09:00 08/16/2013 15:14:00 DIS Emergency CURTIS DUGGAN MD [facility] ER [id number] 01/26/2013 14:36:00 Document Registration [id number] 11/12/2012 01:53:00 Document Registration [id number] 11/27/2011 05:41:00 Document Registration [id number] 11/26/2011 12:42:00 Document Registration [id number] 04/02/2011 14:50:00 Document Registration [id number] 03/26/2011 06:00:00 Document Registration [id number] 08/08/2010 08:13:00 Document Registration
--- OUTSIDE RECORDS SUMMARY | 2019-06-16 11:00 | XMS REPORT ---
Author Author PRUDENCE DUNN [facility] [place] eClinicalWorks Address Unknown Phone Unavailable Care Team Providers Care Presales Senior Specialist Name Role Phone PRUDENCE DUNN CP Unavailable Allergies, Adverse Reactions, Alerts Substance Reaction Event Type N.K.D.A. Info Not Available Non Drug Allergy Problems Problem Type Condition Code Onset Dates Condition Status Problem Radicular leg pain M54.10 Active Problem Absence of menstruation 626.0 Active Problem Back pain M54.9 Active Assessment Back pain M54.9 Active Assessment Radicular leg pain M54.10 Active Medications Medication Code System Code Instructions Start Date End Date Status Dosage Cyclobenzaprine HCl [facility] [address]-36 10 MG Orally Once a day, hs Nov 06, 2015 1 tablet Naprosyn [facility] [address]-47 500 MG Orally every 12 hrs May 02, 2015 1 tablet as needed Procedures Procedure Coding System Code Date Office Visit, Est Pt., Level 3 CPT-4 19428 Nov 06, 2015 Vital Signs Date/Time: Nov 06, 2015 Temperature 98.1 F Weight 105.6 lbs Height 60 in BMI 20.62 Index Blood Pressure Diastolic 60 mmHg Blood Pressure Systolic 100 mmHg Cardiac Monitoring Heart Rate 84 bpm Results No Known Results Summary Purpose eClinicalWorks Submission
--- OUTSIDE RECORDS SUMMARY | 2019-06-16 11:00 | XMS REPORT ---
Author Author PRUDENCE DUNN Organization [facility] Address [address] [place] [address] Care Team Providers Care It Project Coordinator Name Role Phone PRUDENCE DUNN Unavailable PROBLEMS Unknown Problems ALLERGIES No Known Allergies ENCOUNTERS Encounter Location Date Diagnosis [facility] [id number] [place] [id number] 17 Aug, 2017 Pre-employment examination Z02.1 [facility] [employer] [id number] [place] [id number] 13 Aug, 2017 Encounter for immunization Z23 and Homeless Z59.0 [facility] [address] [address] Oct, Back pain M54.9 and Radicular leg pain M54.10 [facility] [id number] [place] [phone] May, Back pain 724.5 [facility] [id number] [place] [id number] May, [facility] [id number] [place] [phone] Apr, Back pain 724.5 [facility] [id number] [place] [phone] Apr, [facility] [address] [phone] Aug, [facility] [id number] [place] [phone] Aug, [facility] [address] [id number] Aug, [facility] [address] [facility] [id number] [place] [address] Dec, [facility] [address] [facility] [id number], [place] [address] Oct, [facility] [address] [facility] [id number], [place] [address] Oct, [facility] [address] [facility] [id number], [place] [address] Oct, IMMUNIZATIONS No Known Immunizations SOCIAL HISTORY Never Assessed REASON FOR VISIT Work Physical for [employer], PT is unsure what she needs done-OctavioRadha PLAN OF CARE Activity Details Follow Up prn Reason: VITAL SIGNS Height 60 in 2017-09-02 Weight 110.9 lbs 2017-09-02 Temperature 98.1 degrees Fahrenheit 2017-09-02 Heart Rate 64 bpm 2017-09-02 Respiratory Rate 18 2017-09-02 BMI 21.66 kg/m2 2017-09-02 Blood pressure systolic 122 mmHg 2017-09-02 Blood pressure diastolic 70 mmHg 2017-09-02 MEDICATIONS No Known Medications RESULTS Name Result Date Reference Range LIPID PANEL 2017-09-02 Cholesterol, Total 131 100-199 Triglycerides 49 0-149 HDL Cholesterol 45 >39 VLDL Cholesterol Eyal 10 5-40 LDL Cholesterol Calc 76 0-99 Comment: BMP 2017-09-02 Glucose, Serum 87 65-99 BUN 14 6-20 Creatinine, Serum 0.59 0.57-1.00 eGFR If NonAfricn Am 129 >59 eGFR If Africn Am 148 >59 BUN/Creatinine Ratio 24 9-23 Sodium, Serum 140 134-144 Potassium, Serum 4.3 3.5-5.2 Chloride, Serum 101 96-106 Carbon Dioxide, Total 24 18-29 Calcium, Serum 9.5 8.7-10.2 PROCEDURES Procedure Date Ordered Result Body Site LIPID PANEL Sep 02, 2017 BASIC METABOLIC PANEL Sep 02, 2017 VENIPUNCT, ROUTINE* Sep 02, 2017 INSTRUCTIONS MEDICATIONS ADMINISTERED No Known Medications MEDICAL (GENERAL) HISTORY Type Description Date Surgical History dilatation and curettage 2011
[2019-06-16] MEDS ORDERED: D5 LR IV SOLUTION 1,000 ML IV ONE (11:10)
[2019-06-16] MEDS ORDERED: OXYTOCIN/NORMAL SALINE 500 ML IV ONE (11:10)
[2019-06-16] MEDS ORDERED: OXYTOCIN/NORMAL SALINE 500 ML IV SCH ×2 (11:17→23:31)
[2019-06-16] MEDS: D5 LR IV SOLUTION 1,000 ML IV SCH ×2 (11:22→18:04)
[2019-06-16] MEDS ORDERED: OXYC1TAB87 PO (11:23)
[2019-06-16] MEDS ORDERED: IBUP-1780 PO (11:23)
[2019-06-16] MEDS ORDERED: DOCU-143 PO (11:24)
--- NOTE | 2019-06-16 11:25 | Discharge Instructions ---
Discharge Instructions Discharge Medications New, Converted or Re-Newed RX: RX on Chart Patient Instructions Patient Instructions: As directed Return to The Hospital For: As directed Activity & Diet Discharge Diet: No Restrictions Activity as Tolerated: No Orders-Post D/C & Referrals Follow Up Appt: Call to make follow up appt. for patient in 4 weeks. Activity Per routine post vaginal delivery instructions. Please call in RX to patient pharmacy. Diet as tolerated Patient may shower or tub bathe as desired. SHELLEY GAONA MD Jun 16, 2019 11:25
--- NOTE | 2019-06-16 11:28 | History & Physical ---
History and Physical Date Seen by Provider: Jun 16, 2019 Time Seen by Provider: 11:25 This patient is a 23-year-old A1 female with an EDC of 8 1419 putting her now at 38 weeks gestation. She was seen in clinic on this date found to be dilated for similar with 80 percent effacement and 0 to +1 station vertex presentation a bag bulging into the vagina. She complained of increasing pressure and pain and contractions. Her first delivery occurring at 36 weeks gestation with labor. She is complicated by gallbladder polyp causes for persistent right upper quadrant pain. She denies rupture membranes or bleeding. GBS culture after 35 weeks gestation was negative. She was sent to labor and delivery from my office for management Allergies are none Medications are vitamins and Pepcid and Bentyl Medical social and surgical histories are per the antepartum record HEENT exam is normal Neck is supple no lymphadenopathy no thyromegaly Abdomen is gravid soft nontender nondistended Extremities show no clubbing cyanosis. There is no Homans sign. Pelvic exam in clinic showed a cervix for similar dilated 80 percent plus effaced +1 station with a bag bulging through the cervix. Presentation vertex. Assessment and plan term at 38 weeks' gestation in early labor. Plan is for admission and expectant management with anticipation for vaginal delivery Allergies and Home Medications Allergies Coded Allergies: NKANo Known Allergies (Unverified Allergy, Mild, 03/17/09) Home Medications Docusate Sodium 100 Mg Capsule, 100 MG PO BID Prescribed by: SHELLEY VILLA on 06/16/19 1124 Ibuprofen 800 Mg Tablet, 800 MG PO Q6H PRN for PAIN Prescribed by: SHELLEY VILLA on 06/16/19 1123 Oxycodone HCl/Acetaminophen 1 Each Tablet, 10 TAB PO Q4H Prescribed by: SHELLEY VILLA on 06/16/19 1123 Vit No.124/Iron/FA 1 Each Tablet, 1 EACH PO DAILY, (Reported) Patient Home Medication List Home Medication List Reviewed: Yes SHELLEY GAONA MD Jun 16, 2019 11:28
[2019-06-16 11:50] LABS: BASOPHILS % (AUTO) 0 % (0-10); EOSINOPHILS # (AUTO) 0.2 10^3/uL (0.0-0.3); EOSINOPHILS % (AUTO) 3 % (0-10); HEMATOCRIT 31 % (35-52); HEMOGLOBIN 9.6 G/DL (11.5-16.0); LYMPHOCYTES # (AUTO) 1.6 X 10^3 (1.0-4.0); LYMPHOCYTES % (AUTO) 22 % (12-44); MEAN CORPUSCULAR HEMOGLOBIN 25 PG (25-34); MEAN CORPUSCULAR HGB CONC 31 G/DL (32-36); MEAN CORPUSCULAR VOLUME 81 FL (80-99); MEAN PLATELET VOLUME 11.6 FL (7.4-10.4); MONOCYTES # (AUTO) 0.7 X 10^3 (0.0-1.0); MONOCYTES % (AUTO) 10 % (0-12); NEUTROPHILS # (AUTO) 4.8 X 10^3 (1.8-7.8); NEUTROPHILS % (AUTO) 65 % (42-75); PLATELET COUNT 303 10^3/uL (130-400); RED CELL DISTRIBUTION WIDTH 15.1 % (10.0-14.5); WHITE BLOOD COUNT 7.3 10^3/uL (4.3-11.0)
[2019-06-16] MEDS: LACTATED RINGERS 1,000 ML IV SCH ×2 (12:03→12:07)
[2019-06-16] MEDS ORDERED: SUFENTA 0.6MCG/ML BUPIVA 0.125 100 ML ONE (12:40)
--- NOTE | 2019-06-16 12:43 | NUR ---
anesthesia notified of pt's request for epidural placement.
[2019-06-16] MEDS ORDERED: fentaNYL INJECTION 100 MCG/2 ML AMP ONE (12:58)
[2019-06-16] MEDS ORDERED: BUPIVACAINE 0.25% 30 ML (SENSORCAINE) VIAL ONE (12:58)
[2019-06-16] MEDS ORDERED: LIDOCAINE PF 2% 5 ML (XYLOCAINE) VIAL ONE (12:58)
--- NOTE | 2019-06-16 13:05 | NUR ---
JARON BROWN here for epidural placement. Procedure explained, consent reviewed and signed by anesthesia. Questions answered to patient's satisfaction. Time out taken to verify correct patient/procedure. 1307- Patient up to side of bed, assisted into sitting position. Betadine prep done x3 and sterile drape applied. 1313- Local done, see anesthesia record. 1318- Test dose given, see anesthesia record for drug and dosage. 1316- Epidural catheter secured in place. Epidural placement complete. 1324- Assisted back into bed, monitors adjusted. Epidural dosed, see anesthesia record. 1322- Epidural of Sufenta/Bupvicaine @12cc/hr stated per pump. Patient tolerated procedure well.
[2019-06-16] MEDS ORDERED: EPIDURAL (SUFENTA 0.6MCG/ML BUPIVA 0.125%) 100 ML BAG EPI PRN (13:30)
[2019-06-16] MEDS ORDERED: NALOXONE 0.4 MG/ML 1 ML (NARCAN) VIAL IV PRN (13:30)
[2019-06-16] MEDS ORDERED: diphenhydrAMINE 50 MG/ML INJ (BENADRYL) IV PRN (13:30)
[2019-06-16] MEDS ORDERED: ONDANSETRON 4 MG/2 ML (SDV) Z0FRAN IV PRN (13:30)
--- NOTE | 2019-06-16 14:08 | NUR ---
was called with update on pt's status. no new orders received.
--- NOTE | 2019-06-16 17:35 | NUR ---
called to check on pt's status. update given.
[2019-06-16] MEDS ORDERED: LIDOCAINE/EPI 2% 1:200,00 (XYLOCAINE) 10 ML VIAL ONE ×2 (20:34)
--- NOTE | 2019-06-16 23:00 | OPERATIVE REPORT ---
DATE OF SERVICE: 06/16/2019 DELIVERY NOTE The patient delivered by term spontaneous vaginal delivery a viable female infant with Apgars of 9 and 9 at 1 and 5 minutes respectively. Weight is 6 lbs. 7 oz. Blood gases pending. time of 21:24. The infant delivered over midline episiotomy that was performed at the patient's request when the presenting part was distending the perineum and she could not push the baby through the perineum. Episiotomy was performed and the delivery was effected promptly. There was a single nuchal cord that was easily released. The was bulb suctioned on delivery of the head and again on completion of delivery. Umbilical cord was doubly clamped and the father cut the cord, the baby was passed to mom's abdomen. Cord bloods were obtained. The placenta delivered spontaneously Riley. It was normal with a 3-vessel cord. The cervix, vagina, rectum, and perineum were examined and found intact, except for the midline episiotomy, which was repaired with a single suture of 3-0 Vicryl Rapide in the usual manner without difficulty. Good hemostasis was achieved and good reapproximation was affected. Sponge and needle counts were correct on completion of delivery and the repair. Estimated blood loss was around 200 mL. The patient tolerated the delivery and the repair well and was recovered in the LDR. The baby remained with the mom. Job ID: [id number] DocumentID: [id number] Dictated Date: 06/16/2019 21:44:25 Pmo Lead Date: 06/16/2019 22:59:15 Dictated By: SHELLEY GAONA MD MTDD
[2019-06-16] MEDS ORDERED: ONDANSETRON 4 MG/2 ML (SDV) Z0FRAN IVP PRN (23:45)
[2019-06-16] MEDS ORDERED: oxyCODONE/APAP 5/325MG (PERCOCET 5) TABLET PO PRN (23:45)
[2019-06-16] MEDS ORDERED: TETANUS,DIPTH,PERTUSS P/F (BOOSTRIX) 0.5 ML VIAL IM ONE (23:45)
[2019-06-16] MEDS ORDERED: MEASLES,MUMPS,RUBELLA 1 EA INJ SC ONE (23:45)
[2019-06-16] MEDS ORDERED: KETOROLAC 30 MG/ML VIAL IVP PRN (23:45)
[2019-06-16] MEDS ORDERED: BENZOCAINE/MENTHOL (DERMOPLAST) 56 ML CAN TP PRN (23:45)
[2019-06-17] VITALS: BP 94/67
--- NOTE | 2019-06-17 01:20 | NUR ---
PT HAS FINISHED . PERICARE COMPLETED WITH LOCHIA LIGHT TO MODERATE. PT ASSISTED TO SITTING POSITION AND EPIDURAL CATH REMOVED. PT BECAME MILDLY LIGHTHEADED WITH SITTING UP, SO RETURNED TO LYING POSITION AND 2ND RN OBTAINED FOR SAFETY. ABLE TO TRANSFER PT EASILY TO W/C AND PT TRANSFERRED TO ROOM IN STABLE CONDITION.
[2019-06-17 03:20] VITALS: BP 92/61
--- NOTE | 2019-06-17 03:20 | NUR ---
PT HAS BEEN RESTING OFF ET ON. VSS. PT DENIES ANY PAIN OR NEED TO VOID. WILL RETURN TO ASSIST TO BATHROOM WHEN NEEDED.
--- NOTE | 2019-06-17 05:30 | NUR ---
PT ASSISTED TO BATHROOM WITH STANDBY ASSIST. PT VOIDED AND PERICARE DONE. LOCHIA LIGHT WITH NO CLOTS.
[2019-06-17] MEDS: IBUPROFEN 800 MG (MOTRIN) TAB PO SCH ×5 (07:05→23:02)
[2019-06-17 09:00] VITALS: BP 88/54
--- NOTE | 2019-06-17 09:00 | NUR ---
A.M. ASSESSMENT COMPLETED. VSS. DISCUSSED SITTING AT BEDSIDE WHEN GETTING UP FOR A MINUTE. PT HAS BEEN LIGHTHEADED DURING THE NIGHT BUT LESS AT 0700.
[2019-06-17] MEDS: DOCUSATE SODIUM 100 MG (COLACE) CAP PO SCH ×2 (09:03→23:02)
[2019-06-17] MEDS ORDERED: WITCH HAZEL(TUCKS) 40 EA JAR ONE (09:26)
[2019-06-17] MEDS ORDERED: DIBUCAINE (NUPERCAINAL) 1% OINT 30 GM ONE (09:26)
[2019-06-17] MEDS ORDERED: TETANUS,DIPTH,PERTUSS P/F (BOOSTRIX) 0.5 ML VIAL IM ONE (09:26)
[2019-06-17] MEDS ORDERED: MEASLES,MUMPS,RUBELLA 1 EA INJ ONE (09:26)
[2019-06-17] MEDS ORDERED: WITCH HAZEL(TUCKS) 40 EA JAR TOP PRN (09:30)
[2019-06-17] MEDS ORDERED: DIBUCAINE (NUPERCAINAL) 1% OINT 30 GM TOP PRN (09:30)
--- NOTE | 2019-06-17 09:35 | NUR ---
PERCOCET 5/325 1 P.O. FOR C/O ABD CRAMPING.
--- NOTE | 2019-06-17 09:38 | NUR ---
TDAP GIVEN IM IN LEFT DELTOID. SITE CLEAR.
--- NOTE | 2019-06-17 10:23 | NUR ---
MMR SUB Q IN RIGHT UPPER ARM. PT GOT UP TO TAKE SHOWER AND PASSED A LARGE CLOT IN THE TOILET. THIS RN RETRIEVED CLOT AND ESTIMATED 7-8 CM IN DIAMETER. VAGINAL BLEEDING LT/MOD RUBRA.
--- NOTE | 2019-06-17 10:38 | NUR ---
DR. GAONA NOTIFIED OF PT PASSING THE CLOT AND NORMAL VAGINAL BLEEDING AND FF U/1 AT THIS TIME.
--- NOTE | 2019-06-17 11:43 | Progress Note ---
Standard Progress Note Progress Notes/Assess & Plan Date Seen by a Provider: Jun 17, 2019 Time Seen by a Provider: 11:41 Progress/Assessment & Plan No c/o VSS AFB FF<umb NT Ext no C/C/E, no homans A/P PPD #1 doing well routine care SHELLEY GAONA MD Jun 17, 2019 11:43
--- NOTE | 2019-06-17 12:00 | NUR ---
CARING FOR INFANT IN ROOM. FAMILY AT BEDSIDE.
[2019-06-17 12:45] VITALS: BP 94/53
--- NOTE | 2019-06-17 14:00 | NUR ---
CARING FOR INFANT IN ROOM. GOOD INTERACTION NOTED.
--- NOTE | 2019-06-17 16:00 | NUR ---
RESTING IN BED. FAMILY AT BEDSIDE. DENIES ANY PAIN OR ANY MORE CLOTS.
[2019-06-17 16:15] VITALS: BP 89/53
--- NOTE | 2019-06-17 18:00 | NUR ---
CONTINUES TO DO WELL. FAMILY AT BEDSIDE. DENIES ANY WANTS OR NEEDS.
--- NOTE | 2019-06-17 18:40 | Anesthesia-Regional Post-Op ---
Regional Patient Condition Mental Status: Alert, Oriented x3 Circulation: Same as Pre-Op Headache: Absent Sensation: Full Recovery Motor Block: Absent Post Op Complications Complications None Follow Up Care/Instructions Patient Instructions None needed. Anesthesia/Patient Condition Patient is doing well, no complaints, stable vital signs, no apparent adverse anesthesia problems. No complications reported per nursing. AFSHAN FLORES CRNA Jun 17, 2019 18:40
[2019-06-17 23:00] VITALS: BP 85/57
[2019-06-18 05:17] VITALS: BP 99/69
[2019-06-18] MEDS: IBUPROFEN 800 MG (MOTRIN) TAB PO SCH (05:17)
--- NOTE | 2019-06-18 08:00 | NUR ---
DR. GAONA HERE TO SEE PT. PLAN FOR DISCHARGE TODAY.
--- NOTE | 2019-06-18 08:06 | Progress Note ---
Standard Progress Note Progress Notes/Assess & Plan Date Seen by a Provider: Jun 18, 2019 Time Seen by a Provider: 08:05 Progress/Assessment & Plan No c/o VSS AFB FF<umb NT Ext no C/C/E, no homans A/P PPD #1 doing well routine care June 18, 2019 Patient is without complaint. She is ablating, voiding, tolerating a intake well has good pain control. Patient is requesting discharge home. Vital Signs Date Time Temp Pulse Resp B/P (MAP) Pulse Ox O2 Delivery O2 Flow Rate FiO2 06/18/19 05:17 98.1 101 18 99/69 (79) 98 Room Air 06/17/19 23:00 98.2 113 18 85/57 (66) 99 Room Air 06/17/19 16:15 98.4 80 18 89/53 (65) 98 Room Air 06/17/19 12:45 98.8 75 18 94/53 (67) 98 Room Air 06/17/19 09:00 98.6 85 18 88/54 (65) 97 Room Air Vital signs are stable. Patient is afebrile. Fundus firm below the umbilicus nontender. Extremities show no clubbing cyanosis. There is no Homans sign. Assessment and plan day number 2 status post spontaneous vaginal delivery at 38 weeks gestation. Patient doing well will be discharged home Final Diagnosis 38 week SHELLEY CANCHOLA MD Jun 18, 2019 08:06
[2019-06-18 09:00] VITALS: BP 88/54
--- NOTE | 2019-06-18 09:00 | NUR ---
A.M. ASSESSMENT COMPLETED. VSS. .
--- NOTE | 2019-06-18 10:00 | NUR ---
INFANT WELL. GOOD INTERACTION NOTED.
--- NOTE | 2019-06-18 11:05 | NUR ---
DISCHARGE INSTRUCTIONS REVIEWED WITH COPY TO PT. RX GIVEN. STATES UNDERSTANDING OF ALL INSTRUCTIONS AND NEED TO F/U SCHEDULED AND NEEDED.
[2019-06-18 11:35] VITALS: BP 88/54
--- NOTE | 2019-06-18 11:35 | NUR ---
DISMISSED AMB FROM [facility] WITH TO FAMILY CAR IN STABLE CONDITION ACC BY LORRI BORJA.
== END 2019-06-18 11:35 | disposition home or self-care (01) | DRG 807 ==
LOC: LDRP 10:52
PROVIDERS: ADMIT Obstetrics & Gynecology; ATTEND Obstetrics & Gynecology
PROC: 10E0XZZ Delivery of Products of Conception, External Approach (ICD-10-PCS; principal; 2019-06-16)
PROC: 0W8NXZZ Division of Female Perineum, External Approach (ICD-10-PCS; 2019-06-16)
DX: O69.81X0 Labor and delivery complicated by cord around neck, without compression, not applicable or unspecified (principal); O99.62 Diseases of the digestive system complicating childbirth; K82.4 Cholesterolosis of gallbladder; Z37.0 Single live birth; Z3A.38 38 weeks gestation of pregnancy; Z23 Encounter for immunization
CPT/HCPCS: 36415; 85025; 90707; 90715